=== PATIENT | female | born 1965 | race Hispanic/Latino ===

== ENCOUNTER 2017-08-11 14:49 | Outpatient (CLI) | payer SELFPAY ==
--- NOTE | 2017-08-13 11:40 | MMO ---
BILATERAL SCREENING MAMMOGRAM: Date: 08/11/17 HISTORY: 52-year-old female. Routine screening mammography. COMPARISON: 05/19/16, 03/03/12, 11/07/10. TECHNIQUE: CC and MLO views of both breasts are submitted for interpretation. This patient's mammogram was reviewed with the assistance of computer-aided detection. FINDINGS: The breasts are composed of scattered fibroglandular tissue. Bilaterally, no suspicious dominant mass , architectural distortion, or suspicious calcifications. IMPRESSION: BIRADS 1: Negative RECOMMENDATION: Annual mammogram. POS: [facility]
== END 2017-08-11 14:50 | disposition home or self-care (01) ==
LOC: SCSMAMMO 14:49
PROVIDERS: ATTEND Nurse Practitioner Family
DX: Z12.31 Encounter for screening mammogram for malignant neoplasm of breast (principal)
CPT/HCPCS: 77067